=== PATIENT | female | born 1985 | race Caucasian/White ===

== ENCOUNTER 2017-03-01 17:57 | Emergency (ER) | payer BC, MEDICAID ==
--- NOTE | 2017-03-01 18:48 | EDPHY ---
H & P Time Seen by Provider: 03/01/17 18:19 HPI/ROS: CHIEF COMPLAINT: Headache HISTORY OF PRESENT ILLNESS: Patient is long history of migraines but says this is "a different migraine. "8 days ago she had night terror and fell off her bed which is about 4 feet high and hit her head on the wood floor. Since then she has been having a dull headache over her entire head. It is not like her typical migraines. It is worse with light but not associated with vomiting or visual symptoms. Was a little better with Imitrex. Over last 4 days it has been increasing in severity and is moderate currently. She does not know if she lost consciousness at the time of the event, thinks it might be possible but she does not have full memory. Denies vertigo or ataxia. REVIEW OF SYSTEMS: Eye: no change in vision ENT: no sore throat Cardiac: no chest pain or syncope Pulmonary: no cough or SOB Abdomen: no vomiting, diarrhea, abdominal pain Musculoskeletal: No neck pain Skin: no rash Neuro: HPI Constitutional: no fever : no urinary symptoms A comprehensive 10 point review of systems is otherwise negative aside from elements mentioned in the history of present illness. PAST MEDICAL HISTORY: Migraine headaches and night terrors Social history: Works in [employer] General Appearance: Alert and conversant, cooperative. Eyes: No scleral icterus. Extraocular motion intact. ENT, Mouth: Normal mucous membranes. No hemotympanum or facial swelling. Respiratory: Normal respiratory effort, breath sounds equal, lungs are clear to auscultation. Cardiovascular: Regular rate and rhythm. Gastrointestinal: Abdomen is soft and non tender. Neurological: Alert and oriented x3. Normally conversant. Face symmetric, normal movement and sensation in all extremities. Normal [id number] and no pronator drift, not ataxic, can do tandem gait. Skin: Warm and dry, no rashes. Musculoskeletal: No spinal tenderness. Psychiatric: Not agitated. Emergency Department course/MDM: Patient presents with worsening and severe headache. Combined with possible loss consciousness and persistent symptoms, CT head to evaluate for intracranial bleeding discussed and consented. 190: Normal noncontrast head CT per Dr. Janusz Herrera. Discussed with the patient. Declined pain medication [id number] or narcotic at this time. Smoking Status: Never smoked Constitutional: Initial Vital Signs Temperature (C) 37.0 C 03/01/17 18:10 Heart Rate 80 03/01/17 18:10 Respiratory Rate 16 03/01/17 18:10 Blood Pressure 97/65 L 03/01/17 18:10 O2 Sat (%) 98 03/01/17 18:10 O2 Delivery Mode Room Air Allergies/Adverse Reactions: No Known Allergies Allergy (Unverified 03/27/12 03:26) Home Medications: Medication Instructions Recorded NK [No Known Home Meds] 03/01/17 Departure - Departure Disposition: Home, Routine, Self-Care Clinical Impression: Concussion Qualifiers: Encounter type: initial encounter Condition: Good Instructions: Concussion (ED), Post Concussion Syndrome (ED) Additional Instructions: Okay to use [id number] medications such as Tylenol 650 mg or ibuprofen 600 mg every 6-8 hours as needed for headache. Referrals: Celestino Freitas DO [Medical Doctor] - As per Instructions (Please follow-up next week with this neurologist if you're still having symptoms.)
[2017-03-01 19:24] VITALS: BP 98/59; PULSE 88; RESP 18; TEMP 98.2; O2SAT 96
== END 2017-03-01 19:24 | disposition home or self-care (01) ==
DX: S06.0X0A Concussion without loss of consciousness, initial encounter (principal); W06.XXXA Fall from bed, initial encounter